=== PATIENT | male | born 1970 | race African-American/Black ===

== ENCOUNTER 2020-02-05 13:02 | Emergency (ER) | payer SELFPAY ==
[~2020-02-05] VITALS: Ht 180.3 cm; Wt 97.0 kg
[~2020-02-05 13:02] MED LIST: METFORMIN
[2020-02-05 13:05] VITALS: BP 190/110
== END 2020-02-05 13:45 | disposition left against medical advice (07) ==
LOC: ER 13:12
DX: F91.1 Conduct disorder, childhood-onset type (principal)
CPT/HCPCS: 99283